=== PATIENT | male | born 1975 | race Two or more races ===

== ENCOUNTER 2016-10-19 03:53 | Emergency (ER) | payer SELFPAY ==
[~2016-10-19 03:53] MED LIST: ILOTYCIN1 G1 OU
== END 2016-10-19 04:34 | disposition home or self-care (01) ==
LOC: SED 03:53
DX: K08.89 Other specified disorders of teeth and supporting structures (principal)
CPT/HCPCS: 99282

== ENCOUNTER 2016-11-02 23:51 | Emergency (ER) | payer SELFPAY ==
[~2016-11-02] VITALS: Ht 167.6 cm; Wt 65.8 kg
--- NOTE | ~2016-11-02 | CR63 ---
[facility]. [facility] A Service of [facility] & [facility] RADIOLOGY TEXT RESULTS PATIENT: LEODAN BLEDSOE LOCATION: SED : 73 UNIT #: [id number] AGE: [address]: Gurpreet Childers MD SEX: M ORDER DR: [id number] [address] [id number] E MR#: [id number] Acc #: [id number] NAME: LEODAN BLEDSOE : 1975 SEX: M STUDY DATE/TIME: 11/03/2016 2:01 UNIT: SED ROOM: STUDY DESCRIPTION: CR Chest 2 View Attending Physician: Gurpreet Childers M.D. Ordering Physician: Gurpreet Childers M.D. Primary Care Physician: Primary Care Physician No MEDICAL IMAGING REPORT This report is preliminary unless electronic signature is present. EXAM PA and lateral chest HISTORY Cough and congestion and chest pain for 1 day. FINDINGS PA and lateral examination of the chest upright shows a good expansion of the parenchyma with a normal distribution of the pulmonary vascularity. There is no indication of congestion, effusion, infiltrate, tumor, or nodular density. The pleural reflections and diaphragmatic contours are normal. The cardiac silhouette and mediastinal anatomy is within normal limits. IMPRESSION Normal chest. Dictated by... Uziel Sousa M.D. THIS IS AN ELECTRONICALLY VERIFIED REPORT Uziel Sousa M.D. at 11/03/2016 4:23 AM NICOLE/rimma TD: 11/03/2016 03:15 JOB #: [id number] MEDICAL IMAGING REPORT Page 1 of 1
[2016-11-03] MEDS ORDERED: NO MEDICATIONS (00:01)
== END 2016-11-03 03:13 | disposition home or self-care (01) ==
LOC: SED 23:51
DX: J06.9 Acute upper respiratory infection, unspecified (principal)
CPT/HCPCS: 71020; 99284